=== PATIENT | female | born 1965 | race Caucasian/White ===

== ENCOUNTER → 2021-05-28 16:30 | Outpatient (CLI) | payer OTHER, SELFPAY ==
--- NOTE | ~2021-05-28 | XR_ITS ---
XR femur RT min 2V 05/28/2021 17:13 INDICATION: Leg pain. History of degenerative joint disease. PROCEDURE: 2 views right femur COMPARISON: Right hip series dated 05/28/2021. FINDINGS: Fracture, dislocation or subluxation is not identified. There is severe osteoarthritis of t he right hip. There is osteoarthritis of the right knee. The soft tissues appear within normal limits . No foreign bodies are identified. IMPRESSION: 1: Advanced polyarticular osteoarthritis. Reviewed, dictated and finalized at location A. ER SKATER
--- NOTE | ~2021-05-28 | XR_ITS ---
EXAMINATION: XR hip RT min 2V DATE: 05/28/2021 17:13 INDICATION: Right hip pain. TECHNIQUE: 2 views of right hip were obtained. COMPARISON: None. FINDINGS: Bone alignment is normal. No fracture. There is advanced right hip osteoarthritis. IMPRESSION: 1. Advanced right hip osteoarthritis. Reviewed, dictated and finalized at location A. K OR BLOCK MAKER
--- NOTE | ~2021-05-28 | XR_ITS ---
XR lumbar spine min 4V 05/28/2021 17:13 Indication: Back pain. Degenerative joint disease. Procedure: 5 views of the lumbar spine Comparison: No prior studies for comparison. Findings: There is loss of disc height at all lumbar levels most severe at L4-5. There is moderate fa cet hypertrophy at L4-5 and L5-S1 with grade 1 degenerative spondylolisthesis at L4-5. No fracture, s ubluxation or dislocation. There are prominent marginal osteophytes on the right at L2-3 and L4-5. Sa cral foramen are symmetric. There are cholecystectomy clips. Impression: 1: Moderate lumbar spondylosis with grade 1 spondylolisthesis at L4-5. Reviewed, dictated and finalized at location A. CORNER STAYER MACHINE OPERATOR Impression: 1: Moderate lumbar spondylosis with grade 1 spondylolisthesis at L4-5.
== END ==
PROVIDERS: Visit Provider Chiropractor
DX: M54.50 Low back pain, unspecified (principal); M54.16 Radiculopathy, lumbar region; M47.816 Spondylosis without myelopathy or radiculopathy, lumbar region; M43.16 Spondylolisthesis, lumbar region; M16.0 Bilateral primary osteoarthritis of hip
CPT/HCPCS: 72110; 73502; 73552

== ENCOUNTER 2022-07-29 | Day surgery (SDC) | payer OTHER, SELFPAY ==
[2022-07-20 13:21] VITALS: BMI 38.7
--- NOTE | 2022-07-29 12:48 | PM.HPGS ---
History of Present Illness History of Present Illness Consent: Risks, benefits, and alternatives have been discussed and questions answered. Patient agrees to proceed with procedure. Chief complaint: neoplasm screening Narrative: Linda Lane is a 57 year old female Referred for colon cancer screening. Review of Systems Review of Systems: All systems reviewed & are unremarkable except as noted in HPI and below PMFSH Past Medical History Medical History Abnormal fasting glucose Fasting glucose normal at 96 with hemoglobin A1c 5.0 on 01/29/2022. Acute non-recurrent maxillary sinusitis Arthritis of right hip Arthritis of right knee Arthritis, lumbar spine BMI 38.0-38.9,adult Breast cancer screening by mammogram Chronic right hip pain Colon cancer screening Encounter for wellness examination in adult Generalized headaches History of lipoma removed ~ 2017 Morbid obesity with BMI of 40.0-44.9, adult Morbid obesity with BMI of 45.0-49.9, adult Obesity (BMI 30-39.9) Renal insufficiency BUN 15, creatinine 1.43 with GFR 41, decreased from 52. BUN 19 with creatinine 1.14 with GFR 56 on 01/29/2022. Tobacco use disorder, continuous 1 pack per day Vitamin B12 deficiency (01/29/22) Level low at 339 with goal greater than 400 with folic acid 24 and hemoglobin 12.9 on 01/29/2022. Surgical History Surgical History H/O lumpectomy History of back surgery lipoma removed History of cholecystectomy History of tonsillectomy Family History Family History Sibling Depression Hypertension Father Hypertension Family history of heart disease in male family member before age 55 Family history of malignant neoplasm of esophagus Depression Mother Hypertension Patient's mother is in good health Carcinoma of colon Diabetes mellitus Depression Grandparent Diabetes mellitus Family history of obesity Family history of cardiovascular disease Family history of kidney disease Family history of lung cancer, Onset Age: 69 Family history of renal failure, Onset Age: 69 Other Hypertension Depression Social History Social History Smoking packs per day: 1 Smoking cigarettes per day: 20.0 Years smoked: 40 Smoking pack-years: 40.00 Smoking status: Current every day smoker Tobacco type: cigarettes Alcohol intake: never Substance use: never Substance use type: opiates Lack of Transportation: No Lack of Food: Never True Current Housing: I Have Housing Concerned About Future Housing: No Difficulty Paying Gas/Electric Bills: No Difficulty Paying for Meds: No Currently Unemployed: No Education: High School Diploma/GED Difficulty w/ Childcare or Family Care: No Living arrangements: with family Additional occupation/education comments: housewife Spiritual care concerns: No Meds Home Medications and Allergies Home Medications Medication Instructions Recorded Confirmed Type hydrochlorothiazide 25 mg tablet 25 mg PO DAILY #90 tabs 09/21/21 07/29/22 Rx omeprazole 20 mg capsule,delayed 20 mg PO BID #180 caps 09/21/21 07/29/22 Rx release topiramate 50 mg tablet 50 mg PO BID #180 tabs 09/21/21 07/29/22 Rx potassium chloride 10 mEq 10 meq PO DAILY #90 caps 10/05/21 07/29/22 Rx capsule,extended release cyanocobalamin (vitamin B-12) 1,000 mcg PO DAILY 02/20/22 07/29/22 History 1,000 mcg tablet meloxicam 15 mg tablet 15 mg PO DAILY PRN pain #90 tabs 03/15/22 07/29/22 Rx aspirin 81 mg chewable tablet 81 mg PO DAILY #90 tabs 04/27/22 07/29/22 Rx rosuvastatin 20 mg tablet 20 mg PO DAILY #90 tabs 04/27/22 07/29/22 Rx fluoxetine 20 mg tablet 20 mg PO DAILY #90 tabs 05/16/22 07/29/22 Rx lisinopril 40 mg tablet 40 mg PO DAILY #90 tabs 07/01/22 07/29/22 Rx ne
[2022-07-29 13:06] VITALS: BP 143/102; PULSE 79; RESP 24; TEMP 36.6; O2SAT 98
[2022-07-29] MEDS: LACTATED RINGERS 1,000 ML 150 ML IV CONT (13:10)
--- NOTE | 2022-07-29 13:17 | WPDANESEPPF ---
Anes - Initial Pre Proc Eval Procedure: Operation Date: 07/29/22 14:15 Proposed Procedures p Screening Colonoscopy - Mac Nicholson MD Date/Time: 07/29/22 13:17 Surgeon: Mac Nicholson MD Pre Op Diagnosis: neoplasm screening Patient Data Age: 57 Gender: F Height: 1.7 m Weight: 112.3 kg Last Vital Signs Temp 97.9 F 07/29/22 13:06 Pulse 79 07/29/22 13:06 Resp 24 H 07/29/22 13:06 BP 143/102 H 07/29/22 13:06 Pulse Ox 98 07/29/22 13:06 O2 Del Method Room Air 07/29/22 13:06 Allergies Allergy/AdvReac Type Severity Reaction Status Date / Time cefdinir Allergy Unknown gi upset Verified 07/29/22 13:05 clindamycin Allergy Unknown unkown Verified 07/29/22 13:05 Penicillins Allergy Unknown Urticaria Verified 07/29/22 13:05 Home Medications Medication Instructions Recorded Confirmed Type hydrochlorothiazide 25 mg tablet 25 mg PO DAILY #90 tabs 09/21/21 07/29/22 Rx omeprazole 20 mg capsule,delayed 20 mg PO BID #180 caps 09/21/21 07/29/22 Rx release topiramate 50 mg tablet 50 mg PO BID #180 tabs 09/21/21 07/29/22 Rx potassium chloride 10 mEq 10 meq PO DAILY #90 caps 10/05/21 07/29/22 Rx capsule,extended release cyanocobalamin (vitamin B-12) 1,000 mcg PO DAILY 02/20/22 07/29/22 History 1,000 mcg tablet meloxicam 15 mg tablet 15 mg PO DAILY PRN pain #90 tabs 03/15/22 07/29/22 Rx aspirin 81 mg chewable tablet 81 mg PO DAILY #90 tabs 04/27/22 07/29/22 Rx rosuvastatin 20 mg tablet 20 mg PO DAILY #90 tabs 04/27/22 07/29/22 Rx fluoxetine 20 mg tablet 20 mg PO DAILY #90 tabs 05/16/22 07/29/22 Rx lisinopril 40 mg tablet 40 mg PO DAILY #90 tabs 07/01/22 07/29/22 Rx nebivolol 10 mg tablet (Bystolic) 10 mg PO DAILY #90 tabs 07/01/22 07/29/22 Rx quetiapine 50 mg tablet 50 mg PO . q.h.s. #90 tabs 07/01/22 07/29/22 Rx bupropion HCl 300 mg 24 hr tablet, 300 mg PO QAM #90 tabs 07/04/22 07/29/22 Rx extended release (Wellbutrin XL) hydrocodone 10 mg-acetaminophen 1 tablet PO Q4H PRN pain #120 tabs 07/11/22 07/29/22 Rx 325 mg tablet Patient hx anesthesia problems: none Family hx anesthesia problems: none Results Review: All pre-operative results and documents have been reviewed as part of the pre-operative evaluation. [facility] Past Medical History Medical History Abnormal fasting glucose Fasting glucose normal at 96 with hemoglobin A1c 5.0 on 01/29/2022. Acute non-recurrent maxillary sinusitis Arthritis of right hip Arthritis of right knee Arthritis, lumbar spine BMI 38.0-38.9,adult Breast cancer screening by mammogram Chronic right hip pain Colon cancer screening Encounter for wellness examination in adult Generalized headaches History of lipoma removed ~ 2017 Morbid obesity with BMI of 40.0-44.9, adult Morbid obesity with BMI of 45.0-49.9, adult Obesity (BMI 30-39.9) Renal insufficiency BUN 15, creatinine 1.43 with GFR 41, decreased from 52. BUN 19 with creatinine 1.14 with GFR 56 on 01/29/2022. Tobacco use disorder, continuous 1 pack per day Vitamin B12 deficiency (01/29/22) Level low at 339 with goal greater than 400 with folic acid 24 and hemoglobin 12.9 on 01/29/2022. Surgical History Surgical History H/O lumpectomy History of back surgery lipoma removed History of cholecystectomy History of tonsillectomy Family History Family History Sibling Depression Hypertension Father Hypertension Family history of heart disease in male family member before age 55 Family history of malignant neoplasm of esophagus Depression Mother Hypertension Patient's mother is in good health Carcinoma of colon Diabetes mellitus Depression Grandparent Diabetes mellitus Family history of obesity Family history of cardiovascular disease Family history of kidney disease Family history of lung cancer, O
[2022-07-29 14:08] VITALS: BP 106/59; PULSE 73; RESP 18; O2SAT 100
[2022-07-29 14:18] VITALS: BP 114/66; PULSE 74; RESP 18; O2SAT 100
[2022-07-29 14:28] VITALS: BP 115/58; PULSE 70; RESP 18; O2SAT 100
== END 2022-07-29 14:40 | disposition home or self-care (01) ==
PROVIDERS: PCP Family Medicine; Visit Provider Internal Medicine Gastroenterology
PROC: 0DJD8ZZ Inspection of Lower Intestinal Tract, Via Natural or Artificial Opening Endoscopic (ICD-10-PCS; CPT 45378; principal; 2022-07-29 14:15)
DX: Z12.11 Encounter for screening for malignant neoplasm of colon (principal); D12.2 Benign neoplasm of ascending colon; Z80.0 Family history of malignant neoplasm of digestive organs; E53.8 Deficiency of other specified B group vitamins; E66.9 Obesity, unspecified; Z68.38 Body mass index [BMI] 38.0-38.9, adult; F17.210 Nicotine dependence, cigarettes, uncomplicated; Z79.891 Long term (current) use of opiate analgesic; Z79.82 Long term (current) use of aspirin
CPT/HCPCS: 45380; 88305; J2704; J7120